=== PATIENT | male | born 1950 | race Caucasian/White ===

== ENCOUNTER → 2020-04-27 | Day surgery (SDC) | payer MEDICARE, OTHER ==
[2020-04-22 14:42] LABS: BASOPHILS # (AUTO) 0.1 (0.0-0.1); BASOPHILS % 1.1 % (0.0-1.0); EOSINOPHILS # (AUTO) 0.4 (0.0-0.4); EOSINOPHILS % 4.6 % (0.0-6.0); HEMOGLOBIN 16.8 g/dL (14.0-18.0); LYMPHOCYTES % 21.9 % (18.0-39.1); MEAN CORPUSCULAR HEMOGLOBIN 29.9 pg (28-32); MEAN CORPUSCULAR HGB CONC 33.6 g/dL (31-35); MEAN CORPUSCULAR VOLUME 89.1 fL (81-99); MONOCYTES # (AUTO) 0.8 (0.2-0.8); MONOCYTES % 9.2 % (4.4-11.3); NEUTROPHILS # (AUTO) 5.8 (2.1-6.9); PLATELET COUNT 239 x10e3/uL (140-360); RED BLOOD COUNT 5.61 x10e6/uL (4.3-5.7); RED CELL DISTRIBUTION WIDTH 13.3 % (11.7-14.4)
--- NOTE | 2020-04-22 15:59 | Diagnostic Imaging Report ---
EXAMINATION: CHEST 2 VIEWS, ABDOMEN-1VIEW (KUB) INDICATION: Pre-operative, renal calculi COMPARISON: None FINDINGS: LINES/TUBES:None LUNGS:The lungs are well-inflated. No focal consolidation or pulmonary edema. PLEURA:No pleural effusion or pneumothorax. MEDIASTINUM:The cardiomediastinal silhouette appears normal in size and shape. Atherosclerotic calcifications of the thoracic aorta. BONES/SOFT TISSUES:No acute osseous injury. ABDOMEN:4 mm left upper pole and 6 mm left lower pole renal calculi. No additional radiographically apparent urinary calculi. Nonobstructive bowel gas pattern. No free air. IMPRESSION: No focal pneumonia or pulmonary edema. 4 mm left upper pole and 6 mm left lower pole renal calculi. Signed by: Baltazar Coe MD on 04/22/2020 3:55 PM
[~2020-04-27] MED LIST: ALLOPURINOL100 MG PO; ATENOLOL50 MG PO; B&O 60MG R/S 60 MG SUPP PR ONE; CEFTRIAXONE SOD 1 GM/NS 50 ML 50 ML IV ONE; IOPAMIDOL 300MG/ML 50ML INFUS..BTL IV ONE; LEVOTHYROXINE50 MCG PO; LIDOCAINE HCL 2% LOCAL INJ 5 ML SDV VIAL INJ ONE; ONDANSETRON HCL INJ 2MG/ML 2ML 2 MG/ML VIAL ONE; PROPOFOL IV EMULSION 10 MG/ML 20 ML VIAL ONE; SEVOFLURANE INHAL SOLN 250 ML PEN BTL ONE; WELLBUTRIN SR150 MG PO
[2020-04-27 08:45] VITALS: BP 120/93
--- NOTE | 2020-05-04 03:56 | Operative Report ---
DATE OF PROCEDURE: 04/27/2020 SURGEON: Raj Perez MD PREOPERATIVE DIAGNOSES: 1. Left nephrolithiasis. 2. Microhematuria. POSTOPERATIVE DIAGNOSES: 1. Left nephrolithiasis. 2. Microhematuria. OPERATIONS PERFORMED: Note: These were all staged procedures as part of multistaged, multistep process in managing the patient's urolithiasis. 1. Left-sided extracorporeal shockwave lithotripsy (separate procedure was performed for the left nephrolithiasis). 2. Cystourethroscopy with bilateral ureteral catheterization and retrograde ureteropyelography (separate procedure was performed for microhematuria). 3. Interpretation of retrograde ureteropyelography. 4. Supervision of fluoroscopy, no radiologist present. ANESTHESIA: General. COMPLICATIONS: None. CLINICAL SUMMARY: Sergey Mchugh is a 69-year-old man, who is status post right ESWL. There seems to have been resolution of the stone following that treatment. He also has a previous urethral stricture. He is brought for the above procedures. He is aware of the risks of bleeding, infection, injury to adjacent structures, need for additional procedures and elected to proceed. OPERATIVE PROCEDURE IN DETAIL: Informed consent was verified. Sergey Mchugh was properly identified, taken to the operating room, placed on the lithotripsy table in supine position. Anesthesia was uneventfully begun. The patient's left nephrolithiasis was localized with biplanar fluoroscopy. A total of 3000 shocks were delivered with fragmentation noted. The patient was then carefully gently repositioned in dorsal lithotomy position with all pressure points were padded. His genitalia were prepared and draped in the usual sterile fashion. The cystoscope sheath with a visual obturator in place was atraumatically inserted into the patient's urethra. It was guided down the unremarkable urethra. The previous location of urethral stricture was no longer obstructed. We went through the normal sphincteric region through the prostate bed, which was significant for trilobar prostatic hypertrophy with small nonobstructing median lobe and kissing lateral lobes. We entered the patient's bladder with panendoscopy revealed grade 1 trabeculations, but no tumors, no stones, and no diverticula, normally positioned and configured ureteral orifices were identified. Ureteral catheter was used to cannulate each ureter and retrograde ureteropyelograms were performed. Interpretation of retrograde ureteropyelography contrast was instilled in retrograde fashion bilaterally. On the left hand side, there were filling defects in the upper calyx and the lower calyx, where we performed lithotripsy. There was no hydronephrosis. Unobstructed drainage was observed bilaterally fluoroscopically. There was no sign of previous stone in the right hand side. The patient's bladder was drained. Cystoscope was withdrawn. The belladonna and opium suppository was placed revealing a 30 g prostate, smooth, nonfluctuant without any nodules. The patient was then uneventfully reversed from anesthesia and taken to recovery room in stable condition. There were no complications to the procedure. He tolerated the procedure well. Exclusive postop instructions were given. We will follow the patient up in the office. Raj Perez MD [place]/MOD[facility] /[id number]
== END | disposition home or self-care (01) ==
LOC: OR 05:21
PROVIDERS: ATTEND Urology
DX: N20.0 Calculus of kidney (principal); N32.89 Other specified disorders of bladder; N40.1 Benign prostatic hyperplasia with lower urinary tract symptoms; R39.14 Feeling of incomplete bladder emptying; R35.1 Nocturia; N52.9 Male erectile dysfunction, unspecified; K42.9 Umbilical hernia without obstruction or gangrene; I12.9 Hypertensive chronic kidney disease with stage 1 through stage 4 chronic kidney disease, or unspecified chronic kidney disease; N18.9 Chronic kidney disease, unspecified; E29.1 Testicular hypofunction; G47.33 Obstructive sleep apnea (adult) (pediatric); I10 Essential (primary) hypertension; E66.01 Morbid (severe) obesity due to excess calories; E03.9 Hypothyroidism, unspecified; Z01.810 Encounter for preprocedural cardiovascular examination; Z01.812 Encounter for preprocedural laboratory examination; Z01.818 Encounter for other preprocedural examination; Z11.59 Encounter for screening for other viral diseases
CPT/HCPCS: 36415; 50590; 71046; 74018; 85025; 93005; C1758; J0696; J2001; J2405; J2704; Q9967; U0002